=== PATIENT | male | born 1965 | race Caucasian/White ===

== ENCOUNTER 2018-02-23 02:22 | Outpatient (CLI) | payer BC, SELFPAY ==
[2018-02-23 07:41] LABS: HCT 44.7 % (40.0-50.0); HGB 15.7 g/dL (13.5-17.5); Mean Corp. HGB Concentration 35.1 g/dL (32.0-36.0); Mean Corpuscular Hemoglobin 29.9 pg (27.0-33.0); Mean Corpuscular Volume 85.1 fL (80-95); Platelet Count 148 x1000/uL (130-400); RBC 5.25 m/cumm (4.50-6.00); RBC Distribution Width 13.8 % (11.8-14.1); White Blood Cell Count 5.25 k/cumm (4.4-10.8)
[2018-02-23 08:23] LABS: ALT 39 U/L (12-78); AST 21 U/L (15-37)
[2018-02-23 08:25] LABS: Cholesterol 148 mg/dL (50-200); Triglyceride 164 mg/dL (30-150)
== END 2018-02-23 02:23 ==
PROVIDERS: Visit Provider Dermatology
DX: L40.0 Psoriasis vulgaris (principal); Z79.899 Other long term (current) drug therapy
CPT/HCPCS: 36415; 85027; 82465; 84450; 84460; 84478

== ENCOUNTER 2018-08-30 02:11 | Outpatient (CLI) | payer BC, SELFPAY ==
[2018-08-30 07:59] LABS: HCT 47.4 % (40.0-50.0); HGB 16.7 g/dL (13.5-17.5); Mean Corp. HGB Concentration 35.2 g/dL (32.0-36.0); Mean Corpuscular Volume 85.1 fL (80-95); Mean Platelet Volume 11.3 fL (8.0-11.0); Platelet Count 157 x1000/uL (130-400); RBC 5.57 m/cumm (4.50-6.00); RBC Distribution Width 13.7 % (11.8-14.1); White Blood Cell Count 4.71 k/cumm (4.4-10.8)
[2018-08-30 09:38] LABS: Cholesterol 152 mg/dL (50-200); Triglyceride 189 mg/dL (30-150)
[2018-08-30 09:42] LABS: ALT 52 U/L (12-78); AST 34 U/L (15-37)
== END 2018-08-30 02:31 ==
PROVIDERS: Visit Provider Dermatology
DX: Z79.899 Other long term (current) drug therapy (principal)
CPT/HCPCS: 36415; 85027; 82465; 84450; 84460; 84478

== ENCOUNTER 2022-08-11 13:48 | Outpatient (REF) | payer BC, SELFPAY ==
[2022-08-11 15:56] LABS: Anion Gap 8.7 mmol/L (3-11); BUN 11 mg/dL (7-18); CO2 26.3 mmol/L (21.0-32.0); CREATININE 1.1 mg/dL (0.70-1.30); Calcium 9.6 mg/dL (8.5-10.1); Chloride 102 mmol/L (98-107); Estimated GFR 77.81 (mL/min/1.73m2); Glucose 318 mg/dL (74-106); Potassium 4.1 mmol/L (3.5-5.1); Sodium 137 mmol/L (136-145); TSH 0.92 uIU/mL (0.36-3.74)
[2022-08-11 18:12] LABS: Hemoglobin A1C 10.5 % (<5.7)
== END 2022-08-11 13:49 | disposition home or self-care (01) ==
LOC: NCHCN 13:48
PROVIDERS: Visit Provider Nurse Practitioner Family
DX: R03.0 Elevated blood-pressure reading, without diagnosis of hypertension (principal); R73.09 Other abnormal glucose; Z00.00 Encounter for general adult medical examination without abnormal findings
CPT/HCPCS: 80048; 83036; 84443

== ENCOUNTER 2023-05-03 14:01 | Outpatient (REF) | payer BC, SELFPAY ==
[2023-05-03 15:51] LABS: Anion Gap 7.8 mmol/L (3-11); BUN 13 mg/dL (7-18); CO2 27.2 mmol/L (21.0-32.0); Calcium 9.6 mg/dL (8.5-10.1); Calculated LDL 86 mg/dL (<100); Chloride 103 mmol/L (98-107); Cholesterol 135 mg/dL (<200); Glucose 156 mg/dL (74-106); HDL Cholesterol 23 mg/dL (40-60); Potassium 4.2 mmol/L (3.5-5.1); Sodium 138 mmol/L (136-145); Triglyceride 134 mg/dL (<150)
[2023-05-03 15:55] LABS: Hemoglobin A1C 7.6 % (<5.7)
== END 2023-05-03 14:02 | disposition home or self-care (01) ==
LOC: NCHCN 14:01
PROVIDERS: Visit Provider Nurse Practitioner Family
DX: E11.9 Type 2 diabetes mellitus without complications (principal); R03.0 Elevated blood-pressure reading, without diagnosis of hypertension; Z13.220 Encounter for screening for lipoid disorders
CPT/HCPCS: 80048; 80061; 83036

== ENCOUNTER 2025-04-30 17:02 | Outpatient (REF) | payer BC, SELFPAY ==
[2025-04-30 19:23] LABS: HCT 46.5 % (40.0-50.0); HGB 16.0 g/dL (13.5-17.5); MCH 27.2 pg (27.0-33.0); MCHC 34.4 % (32.0-36.0); MCV 79 fL (80-95); MPV 11.4 fL (8.0-11.0); Platelet Count 206 10^3/uL (130-400); RBC 5.88 10^6/uL (4.36-5.78); RDW 13.4 % (11.8-14.1); RDW-SD 38.5 fL; WBC 9.32 10^3/uL (4.4-10.8)
[2025-04-30 19:38] LABS: Hemoglobin A1C 7.7 % (<5.7)
[2025-04-30 19:48] LABS: ALT 44 U/L (16-63); AST 29 U/L (15-37); Albumin 4.2 g/dL (3.4-5.0); Alkaline Phosphatase 108 U/L (46-116); Anion Gap 9.9 mmol/L (3-11); BUN 11 mg/dL (7-18); Bilirubin, Total 0.8 mg/dL (0.2-1.0); CO2 28.1 mmol/L (21.0-32.0); Calcium 9.7 mg/dL (8.5-10.1); Chloride 102 mmol/L (98-107); Cholesterol 167 mg/dL (<200); Glucose 127 mg/dL (74-106); HDL Cholesterol 21 mg/dL (>or=40); Potassium 3.9 mmol/L (3.5-5.1); Sodium 140 mmol/L (136-145); TSH 2.66 uIU/mL (0.36-3.74); Total Protein 7.6 g/dL (6.4-8.2)
[2025-04-30 20:31] LABS: Microalb ug/mg Crea 249.1 ug/mg Cr
== END 2025-04-30 17:03 | disposition home or self-care (01) ==
LOC: NCHCN 17:02
PROVIDERS: Visit Provider Family Medicine
DX: E11.69 Type 2 diabetes mellitus with other specified complication (principal); Z00.00 Encounter for general adult medical examination without abnormal findings
CPT/HCPCS: 80053; 80061; 85027; 82043; 82570; 83036; 84443